=== PATIENT | male | born 1950 | race Caucasian/White ===

== ENCOUNTER 2018-03-16 17:10 | Emergency (ER) | payer OTHER ==
[~2018-03-16] VITALS: Ht 185.4 cm; Wt 86.2 kg
--- NOTE | ~2018-03-16 | EKG ---
[place] [address] [facility] [place] [employer] [place] [address] ELECTROCARDIOGRAM REPORT Name: FARIHA JACQUES [id number] Admission: 03/16/18 Attend Phys: Discharge: 03/16/18 Date of : 54 Report #: [id number] THIS REPORT FOR: //name// [facility] ED Test Date: 2018-03-16 Test Time: 17:18:08 Pat Name: FARIHA JACQUES Department: Room: Gender: [employer]: [facility] : 1950 Requested By: Vinny Ballard Order Number: [id number] MD: Rony Negrete Measurements Intervals [place] Rate: 90 P: 38 [place]: 163 QRS: 19 QRSD: 104 T: 52 QT: 365 QTc: 447 Interpretive Statements Sinus rhythm Baseline wander in lead(s) I,II,aVR,aVL,V6 No significant abnormality No previous ECG available for comparison Electronically Signed On 03-17-2018 13:00:57 CDT by Rony Negrete [email or web address] <ELECTRONICALLY SIGNED> By: Rony Negrete MD, [facility] 03/17/18 1300 D: 08/1717 17 oRny Negrete MD, FACC /EPI
[2018-03-16 18:13] LABS: ABSOLUTE NEUTROPHILS 4.2 thou/uL (1.4-8.2); BASOPHILS 0.6 % (0.0-2.0); EOSINOPHILS 2.3 % (0.0-3.0); HEMATOCRIT 42.7 % (42.0-52.0); HEMOGLOBIN 14.8 gm/dL (14.0-18.0); LYMPHOCYTES 33.2 % (24.0-44.0); MCH 32.3 pg (26.0-34.0); MCHC 34.6 g/dL (28.0-37.0); MCV 93.4 fL (80.0-100.0); MONOCYTES 10.7 % (1.0-8.0); PLATELET COUNT 249 thou/uL (150-400); POLYS 53.2 % (36.0-66.0); RBC 4.58 mil/uL (4.50-6.00); RDW 14.1 % (10.5-14.5); WBC 7.9 thou/uL (4.0-11.0)
[2018-03-16 18:21] LABS: ANION GAP 10 mmol/L (7-16); BUN 14 mg/dL (7-18); CALCIUM 8.5 mg/dL (8.5-10.1); CHLORIDE 108 mmol/L (98-107); CO2 25 mmol/L (21-32); GLUCOSE 102 mg/dL (74-106); POTASSIUM 3.4 mmol/L (3.5-5.1); SODIUM 143 mmol/L (136-145)
[2018-03-16 18:30] LABS: ALBUMIN 3.2 g/dL (3.4-5.0); MAGNESIUM 1.9 mg/dL (1.8-2.4); SGOT 27 U/L (15-37); SGPT 35 U/L (30-65); TOTAL BILIRUBIN 0.2 mg/dL (<0.1-1.0); TROPONIN-I <0.06 ng/mL (<0.06)
[2018-03-16 18:38] VITALS: BP 100/55
== END 2018-03-16 18:53 | disposition home or self-care (01) ==
LOC: ER 17:10
PROVIDERS: Emergency Medicine
DX: F41.9 Anxiety disorder, unspecified (principal); M25.552 Pain in left hip; G62.9 Polyneuropathy, unspecified; F32.9 Major depressive disorder, single episode, unspecified; I10 Essential (primary) hypertension; Z85.46 Personal history of malignant neoplasm of prostate; Z90.79 Acquired absence of other genital organ(s)